=== PATIENT | female | born 2005 | race African-American/Black ===

== ENCOUNTER 2023-02-20 16:43 | Emergency (ER) | payer MEDICAID, OTHER ==
[~2023-02-20] VITALS: Ht 167.6 cm; Wt 65.8 kg
[2023-02-20] MEDS ORDERED: IBUPROFEN 400MG TABLET PO ONE (17:45)
[2023-02-20] MEDS ORDERED: IBUP-2028 MT (18:34)
[2023-02-20 19:50] VITALS: BP 132/77
== END 2023-02-20 19:52 | disposition home or self-care (01) ==
LOC: ER 16:43
DX: M54.2 Cervicalgia (principal); M54.50 Low back pain, unspecified; M79.641 Pain in right hand; V49.49XA Driver injured in collision with other motor vehicles in traffic accident, initial encounter; Y93.89 Activity, other specified; Y92.89 Other specified places as the place of occurrence of the external cause; Y99.8 Other external cause status
CPT/HCPCS: 72040; 72100; 73130; 81025; 99284